=== PATIENT | male | born 1995 | race Caucasian/White ===

== ENCOUNTER → 2017-11-15 | Outpatient (CLI) | payer OTHER ==
--- NOTE | 2017-11-15 15:12 | XR ---
Sinus HISTORY: Sinusitis and facial pain 4 views of the sinuses No comparisons Bone mineralization is maintained. No evident air-fluid level in the paranasal sinuses to suggest acu te sinus disease. Orbits are intact. IMPRESSION: Correlate for point tenderness to assess for sinusitis. Sinus CT may be of benefit.
== END | disposition home or self-care (01) ==
LOC: RADXRYALE 13:27
PROVIDERS: ATTEND Physician Assistant
DX: G50.1 Atypical facial pain (principal)
CPT/HCPCS: 70220

== ENCOUNTER → 2017-12-07 | Outpatient (CLI) | payer OTHER ==
--- NOTE | 2017-12-07 14:09 | CT ---
EXAMINATION TYPE: CT sinus w con DATE OF EXAM: 12/07/2017 COMPARISON: HISTORY: Atypical facial pain.Right sided facial mass near nose and under orbit marked by CT DLP: 602 mGycm Automated exposure control for dose reduction was used. CONTRAST: Performed with IV Contrast, patient injected with 100 ml mL of Isovue 300. FINDINGS: At the site of clinical concern and to a lesser extent on the left in the same region is a tubular va scular structure which may reflect a varix. No definite evidence for thrombosis on this examination. No solid mass or cystic structure identified. The globes are symmetric. Paranasal sinuses are well-ae rated. No evidence for air-fluid level. IMPRESSION: At the site of clinical concern and to a lesser extent on the left in the same region is a tubular va scular structure which may reflect a varix.
== END | disposition home or self-care (01) ==
LOC: RADCTMAIN 13:22
PROVIDERS: ATTEND Family Medicine
DX: R93.8 Abnormal findings on diagnostic imaging of other specified body structures (principal)
CPT/HCPCS: 70487; Q9967